=== PATIENT | male | born 1965 ===

== ENCOUNTER 2016-10-11 19:09 | Emergency (ER) | payer SELFPAY ==
[~2016-10-11] VITALS: Ht 185.4 cm; Wt 113.4 kg
[2016-10-11 19:13] VITALS: BP 145/111
== END 2016-10-11 19:34 | disposition left against medical advice (07) ==
LOC: ER 19:09
DX: M79.602 Pain in left arm (principal); M54.2 Cervicalgia; Z53.21 Procedure and treatment not carried out due to patient leaving prior to being seen by health care provider
CPT/HCPCS: 96360